=== PATIENT | female | born 1960 | race Hispanic/Latino ===

== ENCOUNTER 2017-06-02 15:41 | Emergency (ER) | payer OTHER, MEDICARE ==
[~2017-06-02 15:41] MED LIST: LEVO500T2 PO
[2017-06-02 16:49] LABS: APPEARANCE,URINE Clear (CLEAR); BILIRUBIN,URINE Negative (NEGATIVE); COLOR,URINE Yellow (YELLOW); GLUCOSE, URINE (UA) Negative (NEGATIVE); KETONES,URINE Negative (NEGATIVE); LEUKOCYTE ESTERASE ,URINE Negative (NEGATIVE); NITRATE,URINE Negative (NEGATIVE); OCCULT BLOOD,URINE Negative (NEGATIVE); PH,URINE 6.5 (5.0-8.0); PROTEIN,URINE Negative (NEGATIVE); UROBILINOGEN,URINE 0.2 mg/dL (0.2-1.0)
[2017-06-02] MEDS ORDERED: ONDANSETRON ODT 4 MG TAB ONE (18:08)
[2017-06-02] MEDS ORDERED: DICYCLOMINE HCL 10 MG/ML 2ML AMP IM ONE (18:08)
[2017-06-02 18:15] LABS: BASOPHILS % (AUTO) 0.6 % (0.0-5.0); EOSINOPHILS % (AUTO) 2.4 % (0.0-8.0); HEMATOCRIT 33.9 % (36-48); LYMPHOCYTES % (AUTO) 33.9 % (21.0-51.0); MEAN CORPUSCULAR HEMOGLOBIN 33.4 pg (27.0-33.0); MEAN CORPUSCULAR HGB CONC 36.6 g/dL (32.0-36.0); MEAN CORPUSCULAR VOLUME 91.4 fL (79-99); MONOCYTES % (AUTO) 6.1 % (3.0-13.0); PLATELET COUNT (AUTO) 182 K/uL (130-400); RED BLOOD CELL COUNT(AUTO) 3.71 MIL/uL (4.00-5.50); RED CELL DISTRIBUTION WIDTH 13.3 % (11.0-15.5); WHITE BLOOD COUNT (AUTO) 6.6 K/uL (4.8-10.8)
[2017-06-02 18:24] LABS: CREATININE 0.6 mg/dL (0.5-1.5); POTASSIUM 3.6 mmol/L (3.5-5.1)
[2017-06-02 18:28] LABS: ALBUMIN 3.5 g/dL (3.5-5.0); BILIRUBIN,TOTAL 0.2 mg/dL (0.2-1.0)
== END 2017-06-02 18:59 | disposition home or self-care (01) ==
LOC: EDH 15:41
DX: K52.9 Noninfective gastroenteritis and colitis, unspecified (principal); E11.9 Type 2 diabetes mellitus without complications; E78.5 Hyperlipidemia, unspecified; I10 Essential (primary) hypertension; Z90.49 Acquired absence of other specified parts of digestive tract; Z90.710 Acquired absence of both cervix and uterus; Z98.890 Other specified postprocedural states; Z72.0 Tobacco use; Z88.8 Allergy status to other drugs, medicaments and biological substances
CPT/HCPCS: 36415; 74176; 80053; 81003; 82150; 83690; 85025; 86677; 87804 ×2; 96372; 99285; J0500

== ENCOUNTER → 2017-07-02 | Outpatient (CLI) | payer OTHER, MEDICARE | END | disposition home or self-care (01) | LOC: OIH 13:59 | PROVIDERS: ATTEND Family Medicine | DX: I10 Essential (primary) hypertension (principal) | CPT/HCPCS: 71046 ==

== ENCOUNTER 2017-11-05 11:25 | Emergency (ER) | payer OTHER, MEDICARE ==
[2017-11-05] MEDS ORDERED: SODIUM CHLORIDE 0.9% 1000ML 1,000 ML IV ONE (11:52)
[2017-11-05] MEDS ORDERED: ONDANSETRON HCL 4 MG/2 ML VIAL ONE (11:52)
[2017-11-05] MEDS ORDERED: MORPHINE SULFATE 4 MG/1ML SYG ONE ×2 (11:52→14:24)
[2017-11-05 12:11] LABS: APPEARANCE,URINE Cloudy (CLEAR); BILIRUBIN,URINE Negative (NEGATIVE); COLOR,URINE Orange (YELLOW); GLUCOSE, URINE (UA) Negative (NEGATIVE); KETONES,URINE Negative (NEGATIVE); LEUKOCYTE ESTERASE ,URINE Small (NEGATIVE); NITRATE,URINE Negative (NEGATIVE); OCCULT BLOOD,URINE Large (NEGATIVE); PH,URINE 6.5 (5.0-8.0); PROTEIN,URINE Trace (NEGATIVE)
[2017-11-05 12:41] LABS: RBC,URINE 51-100 /HPF (0-1)
[2017-11-05 12:42] LABS: BACTERIA,URINE Rare /HPF (None Seen)
[2017-11-05 12:43] LABS: SQUAMOUS EPITHELIAL CELL,UR Rare /HPF (0-2); TRANSITIONAL EPI CELLS,URINE Rare /HPF (None Seen)
[2017-11-05 13:02] LABS: BASOPHILS % (AUTO) 0.5 % (0.0-5.0); EOSINOPHILS % (AUTO) 1.4 % (0.0-8.0); HEMATOCRIT 35.8 % (36-48); LYMPHOCYTES % (AUTO) 26.5 % (21.0-51.0); MEAN CORPUSCULAR HEMOGLOBIN 31.7 pg (27.0-33.0); MEAN CORPUSCULAR HGB CONC 34.8 g/dL (32.0-36.0); MEAN CORPUSCULAR VOLUME 91.2 fL (79-99); MONOCYTES % (AUTO) 6.2 % (3.0-13.0); NEUTROPHILS % (AUTO) 65.4 % (40.0-77.0); PLATELET COUNT (AUTO) 159 K/uL (130-400); RED BLOOD CELL COUNT(AUTO) 3.93 MIL/uL (4.00-5.50); RED CELL DISTRIBUTION WIDTH 13.2 % (11.0-15.5)
[2017-11-05 13:14] LABS: CREATININE 0.6 mg/dL (0.5-1.5); POTASSIUM 3.8 mmol/L (3.5-5.1)
[2017-11-05 13:19] LABS: ALBUMIN 3.6 g/dL (3.5-5.0); BILIRUBIN,TOTAL 0.3 mg/dL (0.2-1.0); TOTAL PROTEIN, SERUM 6.9 g/dL (6.0-8.3)
[2017-11-05] MEDS ORDERED: CEFTRIAXONE SODIUM 1 GM ONE (14:17)
== END 2017-11-05 14:49 | disposition home or self-care (01) ==
LOC: EDH 11:25
DX: R10.9 Unspecified abdominal pain (principal); I10 Essential (primary) hypertension; R31.9 Hematuria, unspecified; E11.9 Type 2 diabetes mellitus without complications; E78.5 Hyperlipidemia, unspecified; Z90.49 Acquired absence of other specified parts of digestive tract; Z90.710 Acquired absence of both cervix and uterus; Z98.890 Other specified postprocedural states; Z72.0 Tobacco use
CPT/HCPCS: 36415; 74176; 80053; 81001; 85025; 96374 ×2; 96375 ×2; 99285; J0696; J2270 ×2; J2405; J7030

== ENCOUNTER 2019-01-03 11:41 | Inpatient (IN) | payer MEDICARE | END 2019-01-06 17:45 | disposition home or self-care (01) | LOC: EDH 11:41 → EDHIP 19:18 → 3CH 21:57 | DX: G93.41 Metabolic encephalopathy (principal); J18.9 Pneumonia, unspecified organism; N39.0 Urinary tract infection, site not specified; G44.009 Cluster headache syndrome, unspecified, not intractable; R55 Syncope and collapse; K21.9 Gastro-esophageal reflux disease without esophagitis ==

== ENCOUNTER 2019-07-03 22:27 | Emergency (ER) | payer MEDICARE ==
[~2019-07-03 22:27] MED LIST changes: +AMLO5TAB4 PO; +ASPI-555 PO; +ATOR20TA PO; -LEVO500T2 PO; +LEVO500T89 PO
[2019-07-03] MEDS ORDERED: KETOROLAC TROMETHAMINE 60 MG/2 ML VIAL ONE (22:55)
[2019-07-03] MEDS ORDERED: LIDOCAINE 5% TOPICAL PATCH TP ONE (22:56)
[2019-07-03] MEDS ORDERED: HYDROCODONE/ACETAMINOPHEN 5/325 MG TAB ONE (22:56)
[2019-07-03] MEDS ORDERED: ORPHENADRINE CITRATE 30 MG/ML ML ONE (23:22)
== END 2019-07-04 00:16 | disposition home or self-care (01) ==
LOC: EDH 22:27
DX: M54.5 Low back pain (principal); M62.838 Other muscle spasm; E11.9 Type 2 diabetes mellitus without complications; E78.5 Hyperlipidemia, unspecified; I10 Essential (primary) hypertension; Z86.73 Personal history of transient ischemic attack (TIA), and cerebral infarction without residual deficits; Z90.49 Acquired absence of other specified parts of digestive tract; Z90.710 Acquired absence of both cervix and uterus; Z88.8 Allergy status to other drugs, medicaments and biological substances; Z72.0 Tobacco use
CPT/HCPCS: 72100; 96372 ×2; 99284; J1885; J2360

== ENCOUNTER 2019-10-23 14:02 | Inpatient (IN) | payer MEDICARE ==
[2019-10-23] VITALS (10 sets, daily range): BP systolic 117–175; BP diastolic 43–83
[~2019-10-23] VITALS: Ht 162.6 cm; Wt 87.5 kg
[~2019-10-23 14:02] MED LIST changes: -ASPI-555 PO; +ASPI-556 PO
[2019-10-23] MEDS ORDERED: NALOXONE HCL 0.4 MG/1 ML ML ONE (14:21)
[2019-10-23 14:39] LABS: BASOPHILS % (AUTO) 0.4 % (0.0-5.0); EOSINOPHILS % (AUTO) 1.3 % (0.0-8.0); HEMATOCRIT 32.8 % (36-48); MEAN CORPUSCULAR HEMOGLOBIN 30.8 pg (27.0-33.0); MEAN CORPUSCULAR HGB CONC 33.5 g/dL (32.0-36.0); MEAN CORPUSCULAR VOLUME 91.9 fL (79-99); MONOCYTES % (AUTO) 4.4 % (3.0-13.0); NEUTROPHILS % (AUTO) 72.8 % (40.0-77.0); PLATELET COUNT (AUTO) 147 K/uL (130-400); RED BLOOD CELL COUNT(AUTO) 3.57 MIL/uL (4.00-5.50); RED CELL DISTRIBUTION WIDTH 12.5 % (11.0-15.5); WHITE BLOOD COUNT (AUTO) 7.1 K/uL (4.8-10.8)
[2019-10-23 14:51] LABS: CREATININE 0.6 mg/dL (0.5-1.5); POTASSIUM 3.5 mmol/L (3.5-5.1)
[2019-10-23 14:52] LABS: INR 1.01 (0.85-1.15); PARTIAL THROMBOPLASTIN TIME 27.1 SEC (26.3-35.5); PROTHROMBIN TIME 10.9 SEC (9.6-11.6)
[2019-10-23 14:56] LABS: ALBUMIN 3.3 g/dL (3.5-5.0); BILIRUBIN,TOTAL 0.3 mg/dL (0.2-1.0); TOTAL PROTEIN, SERUM 6.7 g/dL (6.0-8.3)
[2019-10-23] MEDS ORDERED: ASPIRIN 325 MG TABLET ONE (15:03)
[2019-10-23] MEDS ORDERED: IOHEXOL-350 75 ML VIAL IV ONE (16:00)
[2019-10-23] MEDS ORDERED: HYDRALAZINE HCL 20 MG/ML VIAL IV PRN (18:45)
[2019-10-23] MEDS ORDERED: HYDROMORPHONE 1 MG/1 ML AMP ONE (19:09)
[2019-10-23 19:10] LABS: APPEARANCE,URINE Clear (CLEAR); BILIRUBIN,URINE Negative (NEGATIVE); COLOR,URINE Yellow (YELLOW); GLUCOSE, URINE (UA) Negative (NEGATIVE); KETONES,URINE Negative (NEGATIVE); LEUKOCYTE ESTERASE ,URINE Small (NEGATIVE); NITRATE,URINE Negative (NEGATIVE); OCCULT BLOOD,URINE Trace (NEGATIVE); PROTEIN,URINE Negative (NEGATIVE)
[2019-10-23 19:18] LABS: AMPHET/METH SCREEN,URINE NEGATIVE (NEGATIVE); BARBITURATE SCREEN, URINE NEGATIVE (NEGATIVE); BENZODIAZEPINES SCREEN,URINE NEGATIVE (NEGATIVE); CANNABINOID SCREEN,URINE NEGATIVE (NEGATIVE); COCAINE SCREEN,URINE NEGATIVE (NEGATIVE); OPIATE SCREEN,URINE POSITIVE (NEGATIVE); PHENCYCLIDINE SCREEN,URINE NEGATIVE (NEGATIVE)
[2019-10-23 19:23] LABS: BACTERIA,URINE Few /HPF (None Seen); MUCUS,URINE Few LPF (None Seen); SQUAMOUS EPITHELIAL CELL,UR 0-2 /HPF (0-2)
--- NOTE | 2019-10-23 23:38 | NUR ---
Admitted from ER at 2054. Severe left sided upper and lower extremity weakness. Oriented to own first name, not last name. Able to state month of birthday but not date. Delayed response. Right facial droop. States onset today. Oriented to room, call light, bed controls, etc. Daughter had to leave, has small children at home. To bring home meds tomorrow when she visits.
[2019-10-24] VITALS (33 sets, daily range): BP systolic 112–167; BP diastolic 48–104
--- NOTE | 2019-10-24 05:57 | NUR ---
Dr Viramontes here. Reported neuro v/s, v/s, labs not drawn yet due to TPA given. Approved holding lab draw.
[2019-10-24] MEDS: HYDROMORPHONE HCL 0.5 MG/0.5 ML ML IV PRN ×2 (08:16→14:27)
[2019-10-24] MEDS: FAMOTIDINE 20MG TAB 20 MG TAB PO SCH ×2 (09:00→21:05)
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
[2019-10-24] MEDS: CLONAZEPAM 1 MG TABLET PO ONE ×2 (12:59→13:00)
[2019-10-24] MEDS ORDERED: ONDANSETRON HCL 4 MG/2 ML VIAL ONE (13:12)
--- NOTE | 2019-10-24 13:30 | NUR ---
CLONAZEPAM NOT GIVEN PATIENT STILL EXPERIENCING NAUSEA AND VOMITING; THEREFORE SHE STATES SHE DOES NOT WANT MEDICATION
[2019-10-24] MEDS ORDERED: ONDANSETRON HCL 4 MG/2 ML VIAL IVP SCH (14:15)
--- NOTE | 2019-10-24 15:02 | NUR ---
DC PLAN VISITED WITH PATIENT. PATIENT DOWN FOR PROCEDURE NOT IN ROOM. Addendum: 10/24/19 at 1503 by PARAM AMARAL RN CM Amended: Links added.
[2019-10-24] MEDS ORDERED: ENAL10TA18 PO (18:53)
[2019-10-24] MEDS ORDERED: IBUP-2076 PO (18:53)
[2019-10-24] MEDS ORDERED: METF-446 PO (18:53)
[2019-10-24] MEDS ORDERED: ESCI10TA54 PO (18:53)
[2019-10-24] MEDS ORDERED: ATOR40TA71 PO (18:53)
[2019-10-24] MEDS ORDERED: BACL20TA PO (18:53)
[2019-10-24] MEDS ORDERED: FLUO40CA49 PO (18:53)
[2019-10-24] MEDS ORDERED: CLOP75TA32 PO (18:53)
[2019-10-24] MEDS ORDERED: ESOM40CA54 PO (18:53)
[2019-10-24] MEDS ORDERED: ATORVASTATIN CALCIUM 40 MG TABLET PO SCH (21:00)
[2019-10-24] MEDS: DOCUSATE SODIUM 100 MG CAP PO SCH (21:05)
[2019-10-25] VITALS (10 sets, daily range): BP systolic 110–157; BP diastolic 35–110
[2019-10-25 04:10] LABS: HEMATOCRIT 34.5 % (36-48); MEAN CORPUSCULAR HEMOGLOBIN 30.1 pg (27.0-33.0); MEAN CORPUSCULAR HGB CONC 32.2 g/dL (32.0-36.0); MEAN CORPUSCULAR VOLUME 93.5 fL (79-99); RED BLOOD CELL COUNT(AUTO) 3.69 MIL/uL (4.00-5.50); RED CELL DISTRIBUTION WIDTH 12.8 % (11.0-15.5); WHITE BLOOD COUNT (AUTO) 5.9 K/uL (4.8-10.8)
[2019-10-25 04:21] LABS: INR 1.04 (0.85-1.15); PROTHROMBIN TIME 11.2 SEC (9.6-11.6)
[2019-10-25 04:26] LABS: HEMOGLOBIN A1C 7.1 % (4.0-6.0)
[2019-10-25 04:47] LABS: ALANINE AMINOTRANSFERASE 19 U/L (12-78); ALBUMIN 3.2 g/dL (3.5-5.0); ASPARTATE AMINOTRANSFERASE 16 U/L (10-37); BILIRUBIN,TOTAL 0.3 mg/dL (0.2-1.0); CARBON DIOXIDE 29 mmol/L (21-32); CHLORIDE 103 mmol/L (101-111); CHOLESTEROL 147 mg/dL (<200); CREATINE KINASE, TOTAL 121 U/L (21-232); CREATININE 0.7 mg/dL (0.5-1.5); GLOMERULAR FILTR. RATE CALC 90 mL/min (>60); GLUCOSE,RANDOM 115 mg/dL (70-105); HDL CHOLESTEROL 34 mg/dL (35-85); LDL DIRECT 74 mg/dL (0-99); MYOGLOBIN 63 ng/mL (10-92); POTASSIUM 3.6 mmol/L (3.5-5.1); SODIUM SERUM 138 mmol/L (136-145); THYROID STIMULATING HORMONE 0.45 uIU/mL (0.36-3.74); TOTAL PROTEIN, SERUM 6.4 g/dL (6.0-8.3); TRIGLYCERIDES 253 mg/dL (30-200); TROPONIN I < 0.04 ng/mL (0.00-0.06); UREA NITROGEN, BLOOD 13 mg/dL (7-18)
[2019-10-25] MEDS: METFORMIN HCL 500 MG TABLET PO SCH (08:30)
[2019-10-25] MEDS: FAMOTIDINE 20MG TAB 20 MG TAB PO SCH ×2 (08:51→21:07)
[2019-10-25] MEDS: DOCUSATE SODIUM 100 MG CAP PO SCH ×2 (08:51→21:07)
[2019-10-25] MEDS: ASPIRIN 81MG TAB.CHEW PO SCH (08:51)
[2019-10-25] MEDS: BISACODYL 10 MG SUPP.RECT RC SCH (08:51)
[2019-10-25] MEDS: PANTOPRAZOLE SODIUM 40 MG TABLET.DR PO SCH (09:33)
[2019-10-25] MEDS: CLOPIDOGREL BISULFATE 75 MG TAB PO SCH (09:33)
[2019-10-25] MEDS: CITALOPRAM 20 MG TABLET PO SCH (09:34)
--- NOTE | 2019-10-25 10:05 | NUR ---
DYSPHAGIA RE-EVAL COMPLETED. +S/S OF ASPIRATION WITH BIG GULPS OF THIN LIQUIDS AT THIS TIME. RECOMMEND MECHANICAL SOFT/GROUND SOLIDS, SMALL SIPS OF THIN LIQUIDS, AND PILLS CRUSHED WITH APPLESAUCE TOLERATED. SILICATOR EDUCATED Pt ON RISKS AND CONSEQUENCES OF ASPIRATION. ALL QUESTIONS ANSWERED AT THIS TIME. SILICATOR COORDINATED WITH NURSE. Addendum: 10/25/[address] ISABEL NEGRNO Amended: Links added.
--- NOTE | 2019-10-25 11:07 | NUR ---
DC PLAN VISITED WITH PATIENT. PATIENT LIVES WITH DAUGHTER. INDEPENDENT ABLE TO PERFORM ADL'S. PATIENT HAS A PROVIDER NOT SURE ON THE AMOUNT OF TIME. NO OTHER SERVICE OR DME'S. ORIGINALLY WANTED TO GO HOME WITH HOME HEALTH. DR. SHAFFER WENT INTO ROOM ASKED PATIENT TO LIFT ARM AND LEG. WAS ONLY ABLE TO PARTIALLY MOVE WITH SHAKINESS. STILL HAVING SOME SPEECH DIFFICULTIES WELL. CONVINCED PATIENT TO GO TO REHAB. DR. SHAFFER AND NURSE WITNESS TO VERBAL CONSENT. INFO SENT TO [facility] IRU. LEFT MESSAGE FOR STEPHANIE. NO ANSWER. CM WILL CONTINUE TO FOLLOW. Addendum: 10/25/19 at 1109 by PARAM AMARAL RN CM Amended: Links added.
--- NOTE | 2019-10-25 11:37 | NUR ---
SPEECH THERAPY IN TO SEE PT. RECOMMENDS TO CRUSH PILLS FOR PT
--- NOTE | 2019-10-25 12:52 | NUR ---
CM Note: [facility] IRU pending approval CM faxed order, clinicals, Covid Assessment to [facility], confirmation received. Spoke to Denise miranda clinicals, aware pending PT eval will send notes once available. MOT semi-filled out pending to be completed once pt has approval. EMS filled out, pending to be faxed one pt ready to DC. Pt pending approval and acceptance at this time. Primary nurse aware. CM to cont to follow up.
[2019-10-25] MEDS ORDERED: ONDANSETRON HCL 4 MG/2 ML VIAL IVP PRN (14:15)
[2019-10-25] MEDS ORDERED: ATORVASTATIN CALCIUM 40 MG TABLET PO SCH (21:00)
[2019-10-25 23:33] LABS: APPEARANCE,URINE Cloudy (CLEAR); BILIRUBIN,URINE Negative (NEGATIVE); COLOR,URINE Orange (YELLOW); GLUCOSE, URINE (UA) Negative (NEGATIVE); KETONES,URINE Negative (NEGATIVE); LEUKOCYTE ESTERASE ,URINE Small (NEGATIVE); NITRATE,URINE Negative (NEGATIVE); OCCULT BLOOD,URINE Large (NEGATIVE); PROTEIN,URINE Negative (NEGATIVE)
[2019-10-25 23:44] LABS: BACTERIA,URINE None Seen /HPF (None Seen); RBC,URINE 51-100 /HPF (0-1); SQUAMOUS EPITHELIAL CELL,UR Few /HPF (0-2)
[2019-10-26 00:29] VITALS: BP 151/69
[2019-10-26] MEDS: ACETAMINOPHEN EXTRA STRENGTH 500 MG TABLET PO PRN ×2 (00:44→16:35)
[2019-10-26 04:20] VITALS: BP 155/68
[2019-10-26 05:26] LABS: BASOPHILS % (AUTO) 0.3 % (0.0-5.0); EOSINOPHILS % (AUTO) 2.3 % (0.0-8.0); LYMPHOCYTES % (AUTO) 22.8 % (21.0-51.0); MEAN CORPUSCULAR HEMOGLOBIN 29.9 pg (27.0-33.0); MEAN CORPUSCULAR VOLUME 90.7 fL (79-99); NEUTROPHILS % (AUTO) 69.3 % (40.0-77.0); PLATELET COUNT (AUTO) 174 K/uL (130-400); RED BLOOD CELL COUNT(AUTO) 4.08 MIL/uL (4.00-5.50); RED CELL DISTRIBUTION WIDTH 12.3 % (11.0-15.5); WHITE BLOOD COUNT (AUTO) 7.1 K/uL (4.8-10.8)
[2019-10-26 05:44] LABS: CREATININE 0.6 mg/dL (0.5-1.5); POTASSIUM 3.8 mmol/L (3.5-5.1)
[2019-10-26 07:30] VITALS: BP 154/74
[2019-10-26] MEDS: METFORMIN HCL 500 MG TABLET PO SCH (08:33)
[2019-10-26] MEDS: CLOPIDOGREL BISULFATE 75 MG TAB PO SCH (09:00)
[2019-10-26] MEDS: ASPIRIN 81MG TAB.CHEW PO SCH (09:00)
[2019-10-26] MEDS: DOCUSATE SODIUM 100 MG CAP PO SCH (09:00)
[2019-10-26] MEDS: BISACODYL 10 MG SUPP.RECT RC SCH (09:00)
[2019-10-26] MEDS: CITALOPRAM 20 MG TABLET PO SCH (09:00)
[2019-10-26] MEDS: PANTOPRAZOLE SODIUM 40 MG TABLET.DR PO SCH (09:00)
[2019-10-26] MEDS: FAMOTIDINE 20MG TAB 20 MG TAB PO SCH (09:00)
--- NOTE | 2019-10-26 10:58 | NUR ---
CM Note: [facility] pending approval CM spoke to Denise kelly/RUDDY, received PT eval notes. Pt pending approval at this time. EMS arranged and faxed, primary nurse to call [facility] once pt ready to DC. Primary nurse aware. CM to cont to follow up.
[2019-10-26 11:00] VITALS: BP 154/64
--- NOTE | 2019-10-26 11:16 | NUR ---
CM Note: [facility] approval CM spoke to Denise klely/RUDDY, pt has approval. MOT filled out, pending MD and house super to sign. EMS arranged and faxed for today, primary nurse to call [facility] once pt ready to DC. Primary nurse aware. CM to cont to follow up.
--- NOTE | 2019-10-26 11:25 | NUR ---
FOLLOW UP COMPLETED. PATENT EXAMINER COORDINATED WITH NURSE BORRERO. Pt TOLERATING DIET RECOMMENDATIONS WITH NO S/S OF ASPIRATION AT THIS TIME. CONTINUE WITH PLAN OF CARE TOLERATED. Addendum: 10/26/[address] ISABEL NEGRON Amended: Links added.
[2019-10-26 16:00] VITALS: BP 133/85
--- NOTE | 2019-10-26 17:12 | NUR ---
HAVE MADE SEVERAL ATTEMPTS TO CALL AND AM NOW WAITING FOR THEM TO CALL ME BACK SO TO TRANSFER PATIENT TO REHAB. Addendum: 10/26/19 at 1718 by MALENA BELTRAN RN RN Amended: Links added.
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
== END 2019-10-26 18:50 | disposition left against medical advice (07) | DRG 62 ==
LOC: EDH 14:02 → EDHIP 14:03 → 2BH 20:08 → 4BH 10-25 10:36
PROVIDERS: ADMIT Family Medicine; ATTEND Family Medicine
DX: I63.9 Cerebral infarction, unspecified (principal); I69.354 Hemiplegia and hemiparesis following cerebral infarction affecting left non-dominant side; I10 Essential (primary) hypertension; R47.1 Dysarthria and anarthria; R13.10 Dysphagia, unspecified; D64.9 Anemia, unspecified; E11.9 Type 2 diabetes mellitus without complications; E66.9 Obesity, unspecified; E78.1 Pure hyperglyceridemia; E78.5 Hyperlipidemia, unspecified; G89.29 Other chronic pain; H53.2 Diplopia; K14.8 Other diseases of tongue; R29.710 NIHSS score 10; R29.810 Facial weakness; Z68.33 Body mass index [BMI] 33.0-33.9, adult; Z79.4 Long term (current) use of insulin; Z86.73 Personal history of transient ischemic attack (TIA), and cerebral infarction without residual deficits; Z88.8 Allergy status to other drugs, medicaments and biological substances; Z91.012 Allergy to eggs; Z82.49 Family history of ischemic heart disease and other diseases of the circulatory system; Z90.49 Acquired absence of other specified parts of digestive tract; Z90.710 Acquired absence of both cervix and uterus
CPT/HCPCS: 36415; 70450; 70544; 70547; 70551; 71045; 80048; 80053; 80061; 80305; 81001; 82550; 82948; 83036; 83721; 83874; 84145; 84443; 84484; 85025; 85027; 85610; 85651; 85730; 86140; 86701; 87088; 87390; 92610; 93005; 97039; 99291; G0378; J1170; J2310; J2405; Q9967